=== PATIENT | male | born 1935 | race Two or more races ===

== ENCOUNTER 2018-02-13 14:15 | Emergency (ER) | payer MEDICARE, MEDICAID ==
--- NOTE | 2018-02-13 15:10 | RADIOLOGY REPORT (SQ) ---
EXAM DESCRIPTION: KNEE LEFT 3 VIEWS COMPLETED DATE/TIME: 02/13/2018 2:58 pm REASON FOR STUDY: fall COMPARISON: None. NUMBER OF VIEWS: Three views left knee including AP, lateral and tangential patellofemoral. LIMITATIONS: None. FINDINGS: Osteopenic. Mild medial compartment narrowing. Trace joint fluid. No fracture or bone l esion. Mild spurring and calcification along the quadriceps and patellar tendons. OTHER: No other significant finding. IMPRESSION: Chronic appearing changes. No fracture or bone lesion. TECHNICAL DOCUMENTATION: JOB ID: [id number] Reading location - IP/workstation name: [email or web address]
[2018-02-13] MEDS ORDERED: ACETAMINOPHEN 325 MG TABLET PO ONE (15:13)
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
[2018-02-13 15:46] VITALS: BP 146/60
== END 2018-02-13 15:56 | disposition home or self-care (01) ==
LOC: ER 14:15
DX: S80.212A Abrasion, left knee, initial encounter (principal); M25.562 Pain in left knee; W52.XXXA Crushed, pushed or stepped on by crowd or human stampede, initial encounter; Y92.129 Unspecified place in nursing home as the place of occurrence of the external cause
CPT/HCPCS: 99284; 73562; A9270